=== PATIENT | male | born 1965 | race Caucasian/White ===

== ENCOUNTER → 2020-06-03 11:43 | Outpatient (BNVA) | payer OTHER, SELFPAY | PROVIDERS: PCP Internal Medicine; Visit Provider Anesthesiology | DX: Z76.89 Persons encountering health services in other specified circumstances (principal) ==

== ENCOUNTER → 2020-07-10 09:20 | Outpatient (BNVA) | payer OTHER, SELFPAY | PROVIDERS: PCP Internal Medicine; Visit Provider Physician Assistant Medical | DX: M25.512 Pain in left shoulder (principal) | CPT/HCPCS: 73030; 99213 ==

== ENCOUNTER 2020-07-17 16:56 | Outpatient (REF) | payer OTHER, SELFPAY ==
--- NOTE | 2020-07-17 | MR_ITS ---
EXAMINATION: MR SHOULDER WITHOUT CONTRAST, LEFT CLINICAL INFORMATION: Chronic pain, decreased ROM, strength, left shoulder. COMPARISON: None. TECHNIQUE: MR images of the shoulder were obtained on a 1.5 [employer] high-field strength scanner without intravenous contrast material. FINDINGS: ROTATOR CUFF: A partial-thickness bursal surface tear of the posterior fibers of the supraspinatus tendon measures 0.8 cm AP with retraction by 1 cm. This tear involves approximately one-half of the tendon thickness. There is mild associated tendinosis. Mild infraspinatus and teres minor tendinosis. A partial-thickness articular-sided tear of the subscapularis tendon measures 1.2 x 1 cm (longitudinal by AP) involving at least one-third of the tendon thickness and extending into the biceps audrey. BICEPS: There is mild biceps tendinosis with medial subluxation at the groove entrance, indicative of a biceps audrey injury. CORACOACROMIAL ARCH: The undersurface of the acromion is flat, potentially the result of prior acromioplasty. The distal margin of the distal clavicle is blunted, likely the result of prior distal clavicular resection. A small volume of fluid is present in the subacromial subdeltoid bursa. LABRUM/CAPSULE: Labrum is normal. Joint capsule is thickened and edematous at the axillary pouch and rotator interval. GLENOHUMERAL JOINT/MARROW: There is cortical irregularity of the greater tuberosity which is likely reactive to the overlying tendinopathy. Articular cartilage appears relatively well preserved. Small glenoid osteophytes are present. MR/MR shoulder LT wo con IMPRESSION: 1. A 0.8 x 1 cm partial-thickness bursal-sided tear of the posterior fibers of the supraspinatus tendon at the insertion, involving approximately one-half of the tendon thickness. 2. Small 1.2 x 1 cm partial-thickness articular-sided tear of the subscapularis tendon at the lesser tuberosity, involving the biceps audrey. There is mild associated biceps tendinosis with partial medial subluxation. 3. Capsular thickening and edema at the axillary pouch and rotator interval as can be seen with adhesive capsulitis or capsular sprain. 4. Mild subacromial subdeltoid bursitis.
== END 2020-07-17 16:57 | disposition home or self-care (01) ==
LOC: HO.MRI 16:56
PROVIDERS: PCP Internal Medicine; Visit Provider Internal Medicine
DX: M25.512 Pain in left shoulder (principal)
CPT/HCPCS: 73221

== ENCOUNTER → 2020-07-20 09:09 | Outpatient (BNVA) | payer OTHER, SELFPAY | PROVIDERS: PCP Internal Medicine; Visit Provider Physician Assistant | DX: M75.102 Unspecified rotator cuff tear or rupture of left shoulder, not specified as traumatic (principal); S46.212D Strain of muscle, fascia and tendon of other parts of biceps, left arm, subsequent encounter; X58.XXXD Exposure to other specified factors, subsequent encounter | CPT/HCPCS: 99214 ==

== ENCOUNTER → 2021-10-05 12:59 | Outpatient (BNVA) | payer OTHER, SELFPAY | PROVIDERS: PCP Internal Medicine; Visit Provider Physician Assistant Medical | DX: M51.24 Other intervertebral disc displacement, thoracic region (principal); Z98.1 Arthrodesis status | CPT/HCPCS: 99203 ==

== ENCOUNTER → 2021-10-13 10:40 | Outpatient (BNVA) | payer OTHER, SELFPAY | PROVIDERS: PCP Internal Medicine; Visit Provider Physician Assistant Medical | DX: M51.24 Other intervertebral disc displacement, thoracic region (principal) | CPT/HCPCS: 99213 ==

== ENCOUNTER → 2023-11-17 12:42 | Outpatient (BNVA) | payer OTHER, SELFPAY | PROVIDERS: PCP Internal Medicine; Visit Provider Physician Assistant | DX: S73.101A Unspecified sprain of right hip, initial encounter (principal); W18.30XA Fall on same level, unspecified, initial encounter | CPT/HCPCS: 99204 ==

== ENCOUNTER → 2023-11-24 13:34 | Outpatient (BNVA) | payer OTHER, SELFPAY | PROVIDERS: PCP Internal Medicine; Visit Provider Physician Assistant | DX: S73.101A Unspecified sprain of right hip, initial encounter (principal); W18.30XA Fall on same level, unspecified, initial encounter | CPT/HCPCS: 99213 ==

== ENCOUNTER → 2024-02-21 11:22 | Outpatient (BNVA) | payer OTHER, SELFPAY | PROVIDERS: PCP Internal Medicine; Visit Provider Physician Assistant | DX: M25.551 Pain in right hip (principal) | CPT/HCPCS: 99214 ==

== ENCOUNTER → 2024-03-29 12:01 | Outpatient (BNVA) | payer OTHER, SELFPAY | PROVIDERS: PCP Internal Medicine; Visit Provider Physician Assistant | DX: M25.551 Pain in right hip (principal); S39.012D Strain of muscle, fascia and tendon of lower back, subsequent encounter; W18.30XD Fall on same level, unspecified, subsequent encounter | CPT/HCPCS: 99214 ==

== ENCOUNTER → 2024-04-11 13:36 | Outpatient (BNVA) | payer OTHER, SELFPAY | PROVIDERS: PCP Internal Medicine; Visit Provider Physician Assistant | DX: S39.012D Strain of muscle, fascia and tendon of lower back, subsequent encounter (principal); W18.30XD Fall on same level, unspecified, subsequent encounter; M25.551 Pain in right hip; R26.89 Other abnormalities of gait and mobility | CPT/HCPCS: 99213 ==